=== PATIENT | male | born 1950 | race Hispanic/Latino ===

== ENCOUNTER 2018-08-11 08:45 | Day surgery (SDC) | payer BC ==
[2018-08-04 15:56] VITALS: BMI 32.5
[2018-08-11] MEDS ORDERED: Sodium Chloride 0.9% 1,000 ML IV SCH (09:00)
[2018-08-11] MEDS ORDERED: Propofol 10 mg/ml Inj (20 ML) ONE (09:36)
[2018-08-11] MEDS ORDERED: Phenylephrine 10 mg/ml Inj ONE (09:59)
[2018-08-11 10:29] VITALS: BP 121/78
[2018-08-11 11:07] VITALS: PULSE 78; RESP 16; TEMP 98.6; O2SAT 98
== END 2018-08-11 11:24 | disposition home or self-care (01) ==
LOC: ENDO 08:45
PROVIDERS: ATTEND Specialist
DX: Z12.11 Encounter for screening for malignant neoplasm of colon (principal); D12.0 Benign neoplasm of cecum; D12.3 Benign neoplasm of transverse colon; K64.8 Other hemorrhoids; I10 Essential (primary) hypertension; E11.9 Type 2 diabetes mellitus without complications; Z79.84 Long term (current) use of oral hypoglycemic drugs
CPT/HCPCS: 45380; 88305; J2001; J2370; J2704; J7030; J7040

== ENCOUNTER 2018-10-13 09:41 | Outpatient (CLI) | payer BC, MEDICARE | END 2018-10-13 09:42 | disposition home or self-care (01) | LOC: RAD 09:41 | DX: I73.9 Peripheral vascular disease, unspecified (principal) ==